=== PATIENT | male | born 1960 | race African-American/Black ===

== ENCOUNTER 2018-05-04 09:06 | Outpatient (CLI) | payer BC ==
--- NOTE | 2018-05-04 11:09 | ULT ---
LEFT LOWER EXTREMITY VENOUS DOPPLER ULTRASOUND: 05/04/2018 HISTORY: Edema and swelling. Assess for DVT. COMPARISON: None. TECHNIQUE: Multiplanar tony-scale sonographic imaging of the venous structures of the left lower extremity are o btained with color-flow and spectral analysis. FINDINGS: Mild nonspecific lymph node prominence noted in the left inguinal region, including nodes measuring 1 .2 cm in short axis dimension x 4.2 cm in long axis dimension. The left common femoral vein, the gre ater saphenous vein, the profunda femoral vein, the femoral vein, the popliteal vein, and the posteri or tibial vein appear patent. Normal blood flow, augmentation, and compression noted, with no eviden ce for DVT on the left. IMPRESSION: Mild adenopathy in the left inguinal region, which may be reactive in nature. Clinical correlation r equired. No evidence for deep venous thrombosis of the left lower extremity. POS: [facility]
== END 2018-05-04 09:07 | disposition home or self-care (01) ==
LOC: SCSULT 09:06
PROVIDERS: ATTEND Family Medicine
DX: R60.0 Localized edema (principal); R59.0 Localized enlarged lymph nodes